=== PATIENT | female | born 2000 | race Two or more races ===

== ENCOUNTER 2022-03-14 19:43 | Emergency (ER) | payer OTHER ==
[~2022-03-14] VITALS: Ht 154.9 cm; Wt 65.8 kg
[2022-03-14] MEDS ORDERED: BACTRIM DS TAB1 EACH PO (22:12)
== END 2022-03-14 22:31 | disposition home or self-care (01) ==
LOC: ER 19:43
DX: N39.0 Urinary tract infection, site not specified (principal); R10.2 Pelvic and perineal pain